=== PATIENT | male | born 1935 | race Caucasian/White ===

== ENCOUNTER 2016-12-09 07:54 | Inpatient (IN) | payer OTHER ==
--- NOTE | 2016-11-24 10:06 | PAT Medication Instructions ---
Service Date Nov 24, 2016. Current Home Medication List Acetaminophen (Tylenol), 1,000 MG PO Q6 PRN for Pain Aspirin (Aspirin Ec), 81 MG PO DAILY Diclofenac Sodium (Voltaren), 75 MG PO Q6H Doxazosin Mesylate (Cardura), 4 MG PO QPM Fish Oil (Hiland-3), 2 CAP PO BID Levothyroxine Sodium (Levothyroxine Sodium), 50 MCG PO DAILY Losartan Potassium (Cozaar), 50 MG PO DAILY Metoprolol Tartrate (Lopressor), 25 MG PO BID Multiple Vitamin (Multivitamin), 1 TAB PO DAILY Medication Instructions For Your Scheduled Surgery - Hold the following medications 10 days prior to surgery: Diclofenac Sodium (Voltaren), 75 MG PO Q6H (per surgeon's instructions) Fish Oil (Hiland-3), 2 CAP PO BID - Hold the following medications the morning of surgery: Losartan Potassium (Cozaar), 50 MG PO DAILY Multiple Vitamin (Multivitamin), 1 TAB PO DAILY - Take the following medications the morning of surgery with a sip of water: Levothyroxine Sodium (Levothyroxine Sodium), 50 MCG PO DAILY Metoprolol Tartrate (Lopressor), 25 MG PO BID Acetaminophen (Tylenol), 1,000 MG PO Q6 PRN for Pain (may take up to 4 hours prior to surgery if needed) - Take the following medications as scheduled the night before surgery: Aspirin (Aspirin Ec), 81 MG PO DAILY evening Doxazosin Mesylate (Cardura), 4 MG PO QPM Metoprolol Tartrate (Lopressor), 25 MG PO BID Acetaminophen (Tylenol), 1,000 MG PO Q6 PRN for Pain If you have any questions please call us at [phone] or [phone] or [phone]
--- NOTE | 2016-11-24 10:48 | DIAGNOSTIC IMAGING REPORT ---
CHEST 2 VIEWS ROUTINE CLINICAL HISTORY: Preoperative chest COMPARISON STUDY: 11/14/2015 FINDINGS: The heart is normal in size. There is no failure. There is elevation right hemidiaphragm. There are right basilar atelectatic changes. No pleural effusions are visualized. There is a chronic deformity the distal left clavicle.[ IMPRESSION: Persistent elevation right hemidiaphragm. Minor right basilar atelectasis. Electronically signed by: Edgard Bernal M.D. 11/24/2016 10:47 AM Dictated Date/Time: 11/24/2016 10:46 AM
[2016-11-24 10:52] LABS: BASO % 0.2 %; BASO ABS # 0.01 K/uL (0-0.2); COMPLETE YES; EOS % 2.3 %; HEMATOCRIT 36.8 % (42-52); IG% 0.2 %; LYMPH % 24.7 %; LYMPH ABS # 1.59 K/uL (1.2-3.4); MEAN CELL VOLUME 87.8 fL (80-100); MEAN CORPUSCULAR HEMOGLOBIN 31.7 pg (25-34); MEAN CORPUSCULAR HGB CONC 36.1 g/dl (32-36); MEAN PLATELET VOLUME 9.2 fL (7.4-10.4); MONO % 10.7 %; NEUT % 61.9 %; PLATELET COUNT 202 K/uL (130-400); RED BLOOD COUNT 4.19 M/uL (4.7-6.1); WHITE BLOOD COUNT 6.43 K/uL (4.8-10.8)
[2016-11-24 11:01] LABS: PARTIAL THROMBOPLASTIN RATIO 1.2; PROTHROMBIN TIME (PATIENT) 10.5 SECONDS (9.0-12.0)
[2016-11-24 11:29] LABS: BLOOD UREA NITROGEN 9 mg/dl (7-18); BUN/CREATININE RATIO 11.7 (10-20); C-REACTIVE PROTEIN 0.53 mg/dl (0-0.29); CALCIUM 9.3 mg/dl (8.5-10.1); CARBON DIOXIDE 26 mmol/L (21-32); CHLORIDE 102 mmol/L (98-107); CREATININE 0.73 mg/dl (0.60-1.40); GLUCOSE 86 mg/dl (70-99); POTASSIUM 4.2 mmol/L (3.5-5.1); SODIUM 138 mmol/L (136-145)
[2016-11-24 12:19] VITALS: BMI 28.0
--- NOTE | 2016-12-03 10:13 | HISTORY & PHYSICAL EXAMINATION ---
DATE OF ADMISSION: 12/09/2016 CHIEF COMPLAINT: Right knee pain. HISTORY OF PRESENT ILLNESS: This 81-year-old gentleman who is well known to me from a previous left knee replacement done in 2004. He has done well from that side. Over the past several years, he has developed increased pain and discomfort in his right knee. He has had steroid shots. This has created quite a bit of side effects and he cannot tolerate the shots. He gets flushing in his face and his says he has a mean demeanor after the shots for about 2 days. Pain has become more debilitating. The more he walks, the more it hurts. He limps further as the day goes on. He would like to have his right knee replaced. PAST MEDICAL HISTORY: Significant for: 1. Pericarditis, followed by Dr. Aguiar. 2. Hypothyroidism. 3. Low back pain/sciatica. 4. Premelanoma. PAST SURGICAL HISTORY: Include: 1. Left shoulder surgery in 2002. 2. Right shoulder surgery in 2012. 3. Mohs surgery. 4. Left knee replacement done in 2004. ALLERGIES: AMOXICILLIN AND SULFA. CURRENT MEDICINES: Include: 1. Metoprolol. 2. Multivitamin. 3. Unspecified Med. 4. Levothyroxine. 5. Doxazosin. 6. Low-dose aspirin. 7. Diclofenac. 8. Tramadol. 9. Lisinopril. SOCIAL HISTORY: A 81-year-old male patient from [place]. He is . Two children. He does not smoke. FAMILY HISTORY: Significant for heart disease, diabetes and leukemia. REVIEW OF SYSTEMS: Significant for this history of pericarditis without any residual symptoms. Denies any chest pain or shortness of breath. No history of DVT or PE. PHYSICAL EXAMINATION: GENERAL: Reveals a healthy, pleasant elderly male. He looks to be in good health. HEENT: Benign. NECK: Supple. No lymphadenopathy. LUNGS: Clear to auscultation. HEART: Regular rate and rhythm. ABDOMEN: Soft, nontender, nondistended. EXTREMITIES: Grossly neurovascularly intact except as follows: Examination of the right knee and leg reveals the patient walks with just slight bit of a limp. He has got varus alignment to his knee. He does have varus thrust with weightbearing. He has got bony hypertrophy medially. Moderate to large knee joint effusion. Range of motion 5-120. No instability. No pain with hip motion. X-RAYS: X-rays of the right knee were reviewed. They show advanced right knee DJD. He has got complete loss of his medial joint space. He has got subchondral sclerosis. He has got osteophytes of the medial femoral condyle and medial tibial plateau. ASSESSMENT: A 81-year-old gentleman, 11 years out from left knee replacement, with advanced right knee degenerative joint disease. He does not do well with injections. He would like to have his right knee replaced. PLAN: We will take him to the operating room and do right total knee replacement. The risks and benefits of this procedure were explained to the patient including but not limited to DVT, PE, , infection, neurological injury, vascular injury, bleeding problem, pain, limited range of motion, stiffness, failure to relieve symptoms, incomplete relief of symptoms, need for further surgery in the future, fracture, leg length inequality, nerve palsy, etc. The patient understands and desires to proceed. Informed consent was obtained. As far as discharge plans, he is planning to be discharged to home. We did talk to him about holding his lisinopril the morning of surgery and making sure he takes his metoprolol. The patient had preoperative workup. Chest x-ray showed a persistent elevation of his right hemidiaphragm. EKG was normal. Labs were all pretty normal. Just slightly elevated CRP. No focal signs of infection. MTDD
[~2016-12-09] VITALS: Ht 165.1 cm; Wt 76.4 kg
[2016-12-09] VITALS (11 sets, daily range): BP systolic 125–183; BP diastolic 65–85; PULSE 61–72; TEMP 36.1–36.7; O2SAT 95–98; Ht 165.1 cm; Wt 76.4 kg
[~2016-12-09 07:54] MED LIST: ACET-1256 PO; ACETAMINOPHEN 500 MG TAB PO SCH; ASPI81TA28 PO; BUPIVACAINE 0.5 % 5 MG/1 ML PF 10ML VIAL ONE; BUPIVACAINE LIPOSOME 266 MG, BUPIVACAINE/EPINEPHRINE INJ 50 ML, SODIUM CHLORIDE 0.9% PF... INFIL SCH; BUPIVACAINE/EPINEPHRINE 0.25% 1:200,000 30 ML VIAL ONE; CEFAZOLIN 2000 MG/60 ML D5W 60 ML IV SCH; DEXAMETHASONE SOD INJ 4 MG/ML VIAL ONE; DICL75TA2 PO; DOXA4TAB2 PO; FAMOTIDINE 20 MG TAB PO SCH; GABAPENTIN 300 MG CAP PO SCH; LACTATED RINGER'S 1000ML 1,000 ML IV SCH; LACTATED RINGER'S 1000ML 500 ML IV ONE; LACTATED RINGER'S 1000ML IV SCH; LEVO50TA6 PO; LOSA50TA6 PO; LPR25 PO; METOCLOPRAMIDE HCL 10 MG TAB PO SCH; MULTTAB58 PO; OMEG10007 PO; SCOPOLAMINE 1.5 MG TDSY TD SCH; TRANEXAMIC ACID INJ 1,000 MG in SODIUM CHLORIDE 0.9% 100ML 100 ML IV SCH
[2016-12-09] MEDS ORDERED: BUPIVACAINE LIPOSOME 1/3% 266 MG/20 ML VIAL INFIL ONE (08:57)
[2016-12-09] MEDS ORDERED: SODIUM CHLORIDE 0.9% PF 50 ML VIAL ONE (08:57)
[2016-12-09] MEDS ORDERED: BACITRACIN 50000 UNIT VIAL ONE (08:57)
[2016-12-09] MEDS ORDERED: BUPIVACAINE/EPINEPHRINE 0.25% 1:200,000 30 ML VIAL ONE (08:57)
[2016-12-09] MEDS ORDERED: ATROPINE SULFATE 0.1 MG/ML 5ML SYR IV PRN (09:30)
[2016-12-09] MEDS ORDERED: FENTANYL CITRATE INJ 50 MCG/1 ML 2 ML VIAL IV PRN (09:30)
[2016-12-09] MEDS ORDERED: ONDANSETRON INJ 2 MG/ML 2 ML VIAL IV PRN ×2 (09:30→12:00)
[2016-12-09] MEDS ORDERED: EpHEDrine SULFATE INJ 50 MG/ML AMP IV PRN (09:30)
[2016-12-09] MEDS ORDERED: MIDAZOLAM HCL 1 MG/ML 2ML VIAL ONE (09:36)
[2016-12-09] MEDS ORDERED: FENTANYL CITRATE INJ 50 MCG/1 ML 2 ML VIAL ONE (09:36)
--- NOTE | 2016-12-09 10:12 | History & Physical Bridge Note ---
H&P Re-Evaluation Bridge Note: I have examined the patient, reviewed the History & Physical and in the interval since the performance of the History & Physical I have noted the following changes of clinical significance: No changes noted
[2016-12-09] MEDS ORDERED: LIDOCAINE HCL 2% 2 ML VIAL (20MG/ML) ONE (10:28)
[2016-12-09] MEDS ORDERED: PROPOFOL IV EMULSION 10 MG/ML 20 ML VIAL IV ONE (10:28)
--- NOTE | 2016-12-09 11:52 | [facility] Post Operative Brief Note ---
Immediate Operative Summary Operative Date Dec 09, 2016. Pre-Operative Diagnosis Right Knee Advanced Degenerative Joint Disease Post-Operative Diagnosis Right Knee Advanced Degenerative Joint Disease Procedure(s) Performed Right Total Knee Arthroplasty Surgeon Dr. Acosta Digital Photographer Surgeon(s) DEANN Ayers Estimated Blood Loss 50 ml Findings Right Knee DJD Fluids (cc crystalloids) 1300 cc Specimens A. Right Knee Bone and Tissue Drains None Anesthesia Spinal Complication(s) None Disposition Recovery Room / PACU
[2016-12-09] MEDS ORDERED: METOCLOPRAMIDE HCL INJ 5 MG/ML 2 ML VIAL IV PRN (12:00)
[2016-12-09] MEDS ORDERED: TRAMADOL HCL 50 MG TAB PO PRN (12:00)
[2016-12-09] MEDS ORDERED: TAMSULOSIN HCL 0.4 MG CAP PO PRN (12:00)
[2016-12-09] MEDS ORDERED: ALUMINUM/MAGNESIUM/SIMETH (MAALOX MAX) 30 ML UDC PO PRN (12:00)
[2016-12-09] MEDS ORDERED: DiphenhydrAMINE HCL 50 MG/ML VIAL IV PRN (12:00)
[2016-12-09] MEDS ORDERED: BISACODYL 10 MG SUPP PR PRN (12:00)
[2016-12-09] MEDS ORDERED: MAGNESIUM HYDROXIDE SUSP 30 ML UDC PO PRN (12:00)
[2016-12-09] MEDS ORDERED: ZOLPIDEM TARTRATE 5 MG TAB PO PRN (12:00)
--- NOTE | 2016-12-09 12:30 | DIAGNOSTIC IMAGING REPORT ---
TWO VIEWS RIGHT KNEE CLINICAL HISTORY: Postoperative examination. FINDINGS: AP and crosstable lateral portable views of the right knee are obtained. A right knee arthroplasty is in near anatomic alignment. There has been undersurface remodeling of the patella. No acute fracture is seen. There are expected postoperative changes around the knee including skin clips, soft tissue edema, and subcutaneous gas. IMPRESSION: Expected postoperative changes status post right knee arthroplasty. No acute fracture is seen. Electronically signed by: Matthew Marina M.D. 12/09/2016 12:29 PM Dictated Date/Time: 12/09/2016 12:29 PM
--- NOTE | 2016-12-09 12:33 | Anesthesiology Progress Note ---
Anesthesia Post Op Note Date & Time Dec 09, 2016 at 12:33 Vital Signs Pain Intensity: 0 Vital Signs Past 12 Hours Date Time Temp Pulse Resp B/P Pulse Ox O2 Delivery O2 Flow Rate FiO2 12/09/16 12:25 62 16 131/67 98 Nasal Cannula 2 12/09/16 12:15 65 16 123/68 97 Nasal Cannula 2 12/09/16 12:05 63 16 125/61 98 Mask 10 12/09/16 11:58 37.0 63 16 117/66 100 Mask 10 12/09/16 08:46 36.1 69 18 163/85 98 Room Air Notes Mental Status: alert / awake / arousable, participated in evaluation Pt Amnestic to Procedure: Yes Nausea / Vomiting: adequately controlled Pain: adequately controlled Airway Patency, RR, SpO2: stable & adequate BP & HR: stable & adequate Hydration State: stable & adequate Neuraxial Anesthesia: was administered, sensory block is resolving Anesthetic Complications: no major complications apparent
[2016-12-09] MEDS: KETOROLAC TROMETHAMINE 15 MG/ML VIAL IV. SCH ×2 (14:15→20:15)
[2016-12-09] MEDS: FERROUS GLUCONATE 324 MG TAB PO SCH ×2 (14:15→17:45)
[2016-12-09] MEDS: ACETAMINOPHEN 500 MG TAB PO SCH ×2 (14:16→21:52)
[2016-12-09] MEDS: D5W AND 1/2NSS + 20MEQ KCL 1,000 ML IV SCH ×2 (14:16→23:13)
--- NOTE | 2016-12-09 14:32 | PROGRESS NOTE ---
DATE: 12/09/2016 DATE: 12/09/2016. SUBJECTIVE: A 81-year-old gentleman postop from a right knee replacement. He is doing well. No pain. No chest pain or shortness of breath. Not feeling dizzy or lightheaded. OBJECTIVE: VITAL SIGNS: Temperature 36.5. Vital signs stable. PHYSICAL EXAMINATION: GENERAL: Reveals a healthy, pleasant elderly male. He is sitting up in bed eating his lunch. He looks comfortable. LUNGS: Clear to auscultation. HEART: Regular rate and rhythm. ABDOMEN: Soft, nontender, nondistended. EXTREMITY EXAMINATION: Grossly neurovascularly intact except as follows: Examination of the right lower extremity reveals the leg to be well aligned. He can dorsiflex and plantarflex his foot appropriately. He is neurologically intact. X-RAYS: X-rays of the right knee from recovery room were reviewed. It shows a cemented posterior total knee arthroplasty. Components looked to be in good position. No signs of problems. ASSESSMENT: A 81-year-old gentleman postop from a right knee replacement, doing well. His pain is controlled. He is neurologically intact. PLAN: 1. DVT prophylaxis including thigh-high TEDs, SCDs, and twisting. 2. PT/OT. Weightbearing as tolerated. Right total knee protocol. 3. Pain control. Doing well with current pain regimen. 4. IV antibiotics x24 hours. 5. Disposition. Plan to be discharged to home with some home health once adequately recovered.
[2016-12-09] MEDS: LOSARTAN POTASSIUM 50 MG TAB PO SCH (15:10)
[2016-12-09] MEDS: METOPROLOL TARTRATE 25 MG TAB PO SCH ×2 (15:10→20:16)
--- NOTE | 2016-12-09 15:55 | OPERATIVE REPORT ---
DATE OF OPERATION: 12/09/2016 SURGEON: Dr. Surinder Acosta. PULLMAN CONDUCTOR: DEANN Carroll. PREOPERATIVE DIAGNOSIS: Right knee degenerative joint disease. POSTOPERATIVE DIAGNOSIS: Right total knee arthroplasty. COMPLICATIONS: None. ESTIMATED BLOOD LOSS: 50 mL. FLUID REPLACEMENT: 1300 mL crystalloid fluid replacement. TOURNIQUET TIME: 58 minutes at 300 mmHg. ANESTHESIA: Spinal with adductor canal block. DRAINS: None. SPECIMENS: Right knee sent for pathology. OPERATIVE INDICATIONS: The patient is a 81-year-old very active gentleman who has had a long history of knee problems. He underwent a left knee replacement 12 years ago and has done extremely well from this. Over the past several years, he has developed increased pain and discomfort in his right knee. He failed conservative treatment and elected to proceed with the right total knee arthroplasty. OPERATIVE FINDINGS: Operative findings revealed advanced right knee DJD. 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 He did have some focal grade 4 changes in the lateral femoral condyle as well as fairly extensive grade 4 changes of the patellofemoral joint. OPERATIVE IMPLANTS: Operative implants consisted of: 1. Biomet Vanguard size 67.5 right posterior stabilized femoral component. 2. Biomet size 71 tibial tray. 3. A 10 mm posterior stabilized polyethylene insert. 4. A 34 x 8.5 All-Poly patella. OPERATIVE PROCEDURE: The patient taken to the operating room, identified and placed on the operating table in supine position. All contact areas were appropriately padded. IV antibiotics were provided by the anesthesia team. A spinal anesthetic and adductor canal block had been provided in the holding area. Jackson catheter was placed in sterile fashion. A right thigh tourniquet was then placed and the right lower extremity was then prepped and draped in the usual sterile fashion. The right leg was elevated and exsanguinated with Esmarch and tourniquet was placed at 300 mmHg. An anterior approach to the right knee was then performed through a longitudinal incision centered over the patella. Sharp dissection was carried out through the subcutaneous tissues down to the level of the extensor mechanism. A medial parapatellar arthrotomy incision was made. Some subperiosteal dissection was carried out medially. The fat pad was resected from beneath the patellar tendon. The lateral patellofemoral ligament was released. The patella was everted and knee was flexed. The osteophytes were taken off the distal femur. The ACL and PCL were then released from the distal femur and the tibia subluxated anteriorly. The external tibial alignment jig was then placed in the anterior face of the tibia and adjusted 16 mm medially. Proximal tibial cut was made to remove about a millimeter or 2 of bone from the most deficient aspect of the medial tibial plateau. Tibia was sized to a size 71. Some osteophytes were taken off medial and posteromedially. Attention was then drawn to the femur. The distal femur was entered with a sharp drill bit. Intramedullary canal was suctioned. A right 6 degree valgus cutting guide was placed. Distal femoral cutting block was pinned in place. Distal femoral cut was made to take an additional 3 mm of bone off the distal femur. The femur was then sized to a size 67.5. We downsized this just slightly. The AP cutting block was pinned parallel to the epicondylar axis, which was 3 degrees of external rotation. The anterior cut, anterior chamfer, posterior cut, posterior chamfer cuts were made. Box cutting guide was placed and adjusted slightly lateral and the box cut was made. The knee was flexed. The remnants of the medial and lateral menisci were excised. The osteophytes were taken off the posterior aspect of the femur. Trial femoral component was placed. The tibial tray was pinned in maximum external rotation and drill and stem punch were used to create defect in proximal tibia for the tibial tray. The knee was then trialed and the 10 mm insert fit most appropriately. Attention was then drawn to the patella. The patella was cleaned of all soft tissues. Patellar thickness measured 23 mm and was cut down to 14. Lug holes was sized to a size 34 patella. Lug holes were drilled for a 34 patella. Lateral osteophyte was removed. Patella button was placed. Knee was taken through range of motion and the patella tracked nicely with no thumbs test. Attention was then drawn toward placement of permanent components. All trial components were removed. Bone plug was placed in the distal femur to limit blood loss. A double batch of Palacos G cement was mixed. A right size 67.5 posterior stabilized femoral component, size 71 tibial tray, 10 mm posterior stabilized polyethylene insert, and a 34 x 8.5 All-Poly patella was then cemented in place. Knee was brought out into full extension until cement hardened. A final cement check was then performed. Pericapsular tissues were injected with 100 mL of a combination of 20 mL of Exparel, 30 mL of normal saline, 50 mL of 0.25% Marcaine with epinephrine. The patient did receive 1 gram of tranexamic acid. The tourniquet was then let down for a final tourniquet time of 58 minutes. Hemostasis was assured with use of electrocautery. The extensor mechanism was then closed with a combination of #1 PDS suture and #1 Vicryl suture in a [id number] fashion. Extensor mechanism was checked and found to be intact. The subcutaneous tissues were then closed with 2-0 Dexon suture in a buried interrupted fashion. Skin was closed with skin melanie. The leg was then cleaned and dried and a sterile dressing with Xeroform, 4 x 4, sterile cast padding and Molina bandage were applied. The patient then transferred to the recovery room in stable condition. The patient tolerated the procedure well and there were no complications. All needle and sponge counts were correct at the end of the operation. I attest to the content of the Intraoperative Record and any orders documented therein. Any exceptions are noted below. MEDARDOD
[2016-12-09] MEDS: CHECK SCOPOLAMINE PATCH PLACEMENT SCH ×2 (16:18→23:14)
[2016-12-09] MEDS: CEFAZOLIN IV 1,000 MG in DEXTROSE 5% 50ML 50 ML IV SCH (17:47)
[2016-12-09] MEDS ORDERED: TRANEXAMIC ACID INJ 1,000 MG in SODIUM CHLORIDE 0.9% 100ML 100 ML IV SCH (18:00)
[2016-12-09] MEDS: DOCUSATE SODIUM 100 MG CAP PO SCH (20:16)
[2016-12-09] MEDS: ASPIRIN 325 MG ECTAB PO SCH (20:16)
[2016-12-09] MEDS: DOXAZosin MESYLATE TAB 4 MG TAB PO SCH (20:16)
[2016-12-10] VITALS (7 sets, daily range): BP systolic 122–160; BP diastolic 64–74; PULSE 58–74; TEMP 36.4–36.8; O2SAT 96–98
[2016-12-10] MEDS: CEFAZOLIN IV 1,000 MG in DEXTROSE 5% 50ML 50 ML IV SCH (01:57)
[2016-12-10] MEDS: KETOROLAC TROMETHAMINE 15 MG/ML VIAL IV. SCH ×4 (01:58→20:40)
[2016-12-10] MEDS: LEVOTHYROXINE 50 MCG TAB PO SCH (05:40)
[2016-12-10] MEDS: ACETAMINOPHEN 500 MG TAB PO SCH ×3 (05:40→20:41)
[2016-12-10 06:14] LABS: HEMATOCRIT 29.3 % (42-52); MEAN CELL VOLUME 86.4 fL (80-100); MEAN CORPUSCULAR HEMOGLOBIN 31.6 pg (25-34); MEAN CORPUSCULAR HGB CONC 36.5 g/dl (32-36); MEAN PLATELET VOLUME 8.9 fL (7.4-10.4); PLATELET COUNT 192 K/uL (130-400); RED BLOOD COUNT 3.39 M/uL (4.7-6.1)
[2016-12-10 06:45] LABS: BUN/CREATININE RATIO 14.5 (10-20); CALCIUM 7.9 mg/dl (8.5-10.1); CREATININE 0.96 mg/dl (0.60-1.40); POTASSIUM 4.1 mmol/L (3.5-5.1)
[2016-12-10] MEDS: CHECK SCOPOLAMINE PATCH PLACEMENT SCH ×3 (08:00→23:15)
--- NOTE | 2016-12-10 08:30 | Anesthesiology Progress Note ---
Anesthesia Post Op Note Date & Time Dec 10, 2016 at 08:29 Vital Signs Pain Intensity: 0.0 Vital Signs Past 12 Hours Date Time Temp Pulse Resp B/P Pulse Ox O2 Delivery O2 Flow Rate FiO2 12/10/16 08:23 98 Room Air 12/10/16 07:56 36.5 72 16 146/70 98 Room Air 12/10/16 03:14 36.6 71 16 122/67 96 Room Air 12/09/16 23:30 36.6 65 16 125/68 95 Room Air Notes Mental Status: alert / awake / arousable, participated in evaluation Pt Amnestic to Procedure: Yes Nausea / Vomiting: adequately controlled Pain: adequately controlled Airway Patency, RR, SpO2: stable & adequate BP & HR: stable & adequate Hydration State: stable & adequate Neuraxial Anesthesia: sensory block resolved Anesthetic Complications: no major complications apparent
[2016-12-10] MEDS ORDERED: MULTIVITAMIN TAB PO SCH (09:00)
[2016-12-10] MEDS: FERROUS GLUCONATE 324 MG TAB PO SCH ×3 (09:11→18:00)
[2016-12-10] MEDS: ASPIRIN 325 MG ECTAB PO SCH ×2 (09:11→20:42)
[2016-12-10] MEDS: METOPROLOL TARTRATE 25 MG TAB PO SCH ×2 (09:11→20:42)
[2016-12-10] MEDS: PANTOprazole SOD 40 MG TAB PO SCH (09:11)
[2016-12-10] MEDS: MULTIVITAMIN TAB PO SCH (09:11)
[2016-12-10] MEDS: DOCUSATE SODIUM 100 MG CAP PO SCH ×2 (09:12→20:42)
[2016-12-10] MEDS: LOSARTAN POTASSIUM 50 MG TAB PO SCH (09:12)
[2016-12-10] MEDS: D5W AND 1/2NSS + 20MEQ KCL 1,000 ML IV SCH (09:31)
[2016-12-10] MEDS ORDERED: FRRG PO (12:16)
[2016-12-10] MEDS ORDERED: ASPEC325 PO (12:16)
[2016-12-10] MEDS ORDERED: ACET-1138 PO (12:16)
[2016-12-10] MEDS ORDERED: ULT50X PO (12:16)
--- NOTE | 2016-12-10 12:18 | Discharge Instructions ---
Discharge Instructions Date of Service Dec 10, 2016. Admission Reason for Admission: Right Knee Pain, Osteoarthritis, Hx Of [place] Discharge Discharge Diagnosis / Problem: Right Knee Replacement Discharge Goals Goal(s): Decrease discomfort, Improve function, Increase independence, Improve disease control, Therapeutic intervention Activity Recommendations Activity Limitations: per Instructions/Follow-up section Weightbearing Status: Right weightbearing . Instructions / Follow-Up Instructions / Follow-Up ACTIVITY RECOMMENDATIONS: Physical Therapy: * You will go to physical therapy three times each week for four to six weeks after your surgery in order to regain your knee range of motion and to retrain your knee to work properly. * It is just as important to make sure you are getting your knee perfectly straight as it is to regain your knee bend. * Taking a pain pill an hour before therapy can help you have a more productive and comfortable therapy session. Home Exercise: * You were shown a series of exercises (heel props, heel slides, etc.) in the hospital. Do these exercises three to four times each day including the exercises you were shown in physical therapy. Walking: * Get up and walk several times each day. For the first four weeks, try not to stand or walk for more than one hour at a time. If you do stand or walk for more than one hour, you will not hurt anything, but your knee and leg will likely swell. * As you feel comfortable, you may change from the walker or crutches to a cane and then to independent walking. MEDICATIONS: New Medicine: * You will likely be taking one or more of these medications: 1. Tramadol - A quick and shorter-acting pain medication. Take one to two tablets every four to six hours to lessen your pain. 2. Iron Sulfate - Take two times each day for the month after surgery to help you replace the blood lost during surgery. 3. Aspirin - Thins your blood to lessen the chance of forming a blood clot. * The most common side effects of pain medicine and iron are nausea and constipation. If nausea or constipation is too much of a problem or if you have any questions about your new medicines or doses, call [facility] at . We will try to help you manage these issues. VERY IMPORTANT TO READ AND REVIEW" Pain: * The immediate post-operative period after knee replacement surgery is often quite painful. * You are given a prescription for pain medicine. You should take it, as directed, when you need it, especially before physical therapy and before going to bed. Pain that interferes with sleep is very common and can last several months. * You will likely need pain medicine for the first four to six weeks. It will not stop all of the pain. The pain will lessen and as you feel better, you may change to milder pain medicine such as Tylenol. * The most common side effects of pain medicine are nausea and constipation, so don't take more than you need. SPECIAL CARE INSTRUCTIONS: TEDs/Elastic Stockings: * The white elastic stockings help limit swelling and prevent blood clots from forming in your legs. The more you wear them, the more they work. * Wear them for six weeks after knee replacement surgery and four weeks after partial knee replacement. Prevention of Infection: * Take antibiotics one hour before any dental cleaning, dental work, urological procedure, gastrointestinal procedure or any invasive surgery in order to prevent your new joint from getting infected. * You may get the antibiotics from the doctor performing the procedure or you may call our office at before and we will call in a prescription to the pharmacy of your choice. Things to Watch For: * Drainage from the incision site that occurs more than one week after your surgery. * Severely increased knee/leg pain or swelling. * Increased redness at the incision site. * Fever above 102 degrees Fahrenheit. * Unusual chest pain or shortness of breath. * Unusual pain or burning with urination. Call [facility] at with any of the above problems or if you have any questions about your medicines or recovery. FOLLOW UP VISIT: Make an appointment to see your doctor for approximately two weeks after surgery for a progress check and staple removal by calling the office at . Current Hospital Diet Patient's current hospital diet: Regular Diet Discharge Diet Recommended Diet: Regular Diet Procedures Procedures Performed: Right Total Knee Arthroplasty Pending Studies Studies pending at discharge: no Medical Emergencies . Who to Call and When: Medical Emergencies: If at any time you feel your situation is an emergency, please call [phone] immediately. . Non-Emergent Contact Non-Emergency issues call your: Surgeon . . "Provider Documentation" section prepared by Surinder Acosta. VTE Core Measure Inpt VTE Proph given/why not?: Other Anticoagulation, T.E.D. Stockings, SCD's
--- NOTE | 2016-12-10 12:23 | PROGRESS NOTE ---
DATE: 12/10/2016 SUBJECTIVE: 81-year-old gentleman postop day 1 from right knee replacement. He is doing well. Currently minimal pain. Denies any chest pain or shortness of breath. Says his pain is much different than with his knee 12 years ago. OBJECTIVE: VITAL SIGNS: Temperature 36.4. Vital signs stable. PHYSICAL EXAMINATION: GENERAL: Reveals is a healthy, pleasant, elderly male. He is sitting up in his bedside chair and reading. LUNGS: Clear to auscultation. HEART: Regular rate and rhythm. ABDOMEN: Soft, nontender, nondistended. EXTREMITIES: Grossly neurovascularly intact except as follows. Examination of the right leg reveals the dressing to be clean, dry and intact. No significant drainage. He can dorsiflex and plantarflex his foot appropriately. He is neurologically intact. LABORATORY DATA: Hemoglobin is 10.7. Hematocrit 29.3. Electrolytes are stable. ASSESSMENT: 81-year-old gentleman postop day 1 from right knee replacement, doing pretty well. Pain is well controlled. He is neurologically intact. PLAN: 1. DVT prophylaxis including thigh-high TEDs, SCDs, and aspirin twice a day. 2. PT/OT. Weightbearing as tolerated. Right total knee protocol. 3. Pain control. Doing well with current pain regimen. Really not having much pain at all. 4. Anemia. He is asymptomatic. We will continue iron supplementation. 5. Disposition: Plan to discharge to home with some home health once adequately recovered.
[2016-12-10] MEDS: DOXAZosin MESYLATE TAB 4 MG TAB PO SCH (20:41)
[2016-12-11] MEDS: KETOROLAC TROMETHAMINE 15 MG/ML VIAL IV. SCH ×2 (01:34→08:05)
[2016-12-11] MEDS: LEVOTHYROXINE 50 MCG TAB PO SCH (05:44)
[2016-12-11] MEDS: ACETAMINOPHEN 500 MG TAB PO SCH (05:44)
[2016-12-11 06:15] VITALS: BP 151/78; PULSE 67; TEMP 36.6; O2SAT 98
--- NOTE | 2016-12-11 07:38 | PROGRESS NOTE ---
DATE: 12/11/2016 SUBJECTIVE: A 81-year-old gentleman postop day 2 from a right knee replacement. He is doing well. Taking mostly just Tylenol for pain. No chest pain or shortness of breath. Not feeling dizzy or lightheaded. OBJECTIVE: VITAL SIGNS: Temperature 36.6. Vital signs stable. GENERAL: Reveals a pleasant, elderly male. He is sitting at his bedside, eating breakfast and looks comfortable. LUNGS: Clear to auscultation. HEART: Regular rate and rhythm. ABDOMEN: Soft, nontender, nondistended. EXTREMITIES: Grossly neurovascularly intact except as follows: Examination of the right leg reveals the dressing to be clean, dry, and intact. He can dorsiflex and plantarflex his foot appropriately. He is neurologically intact. ASSESSMENT: A 81-year-old gentleman postop day 2 from right knee replacement, doing well. His pain is controlled. He is neurologically intact. PLAN: 1. DVT prophylaxis including thigh-high TEDs, SCDs, and aspirin twice a day. 2. PT/OT. Weightbearing as tolerated. Right total knee protocol. 3. Pain control, doing well with current pain regimen. 4. Disposition. Plan to discharge to home with some home health after therapy.
[2016-12-11] MEDS: ASPIRIN 325 MG ECTAB PO SCH (08:07)
[2016-12-11] MEDS: DOCUSATE SODIUM 100 MG CAP PO SCH (08:07)
[2016-12-11] MEDS: FERROUS GLUCONATE 324 MG TAB PO SCH (08:07)
[2016-12-11] MEDS: MULTIVITAMIN TAB PO SCH (08:08)
[2016-12-11] MEDS: LOSARTAN POTASSIUM 50 MG TAB PO SCH (08:08)
[2016-12-11] MEDS: PANTOprazole SOD 40 MG TAB PO SCH (08:08)
[2016-12-11] MEDS: METOPROLOL TARTRATE 25 MG TAB PO SCH (08:08)
[2016-12-11 08:15] VITALS: BP 151/78; PULSE 67; TEMP 36.6; O2SAT 98
--- NOTE | 2016-12-17 15:37 | DISCHARGE SUMMARY ---
ADMITTING PHYSICIAN AND SURGEON: Dr. Acosta. ADMITTING DIAGNOSIS: Right knee degenerative joint disease. SURGERY PERFORMED: Right total knee arthroplasty. SECONDARY DIAGNOSES: Pericarditis, hypothyroidism, low back pain, sciatica premelanoma. CONSULTS: None obtained. HISTORY AND PHYSICAL EXAMINATION: Well documented in the patient's chart. HOSPITAL COURSE: The patient was admitted on 12/09/2016 underwent total knee arthroplasty, tolerated the procedure well. There were no complications. He was transferred to PACU postoperatively and later to the orthopedic floor for further care. He was given Ancef for antibiotic prophylaxis, JUAN A stockings, SCDs and aspirin for DVT prophylaxis. Hemoglobin, hematocrit and vital signs were monitored during his hospital stay and remained stable. He developed some postoperative anemia with a hemoglobin of 10.7 did not require any blood transfusions. There were no complications. By postoperative day 2, he was tolerating a general diet. Pain was controlled with oral pain medicine. He was participating in physical therapy and had no signs or symptoms of deep vein thrombosis. On postop day 2, he was discharged home and set up with home health services. He was given printed discharge instructions including Extra-Strength Tylenol, aspirin 325 mg b.i.d., iron supplement and tramadol. Continue his home medicines with the exception of his home dose of Tylenol and aspirin which were changed. Continue physical therapy, weightbearing as tolerated. JUAN A stockings. He will follow up with Dr. Acosta in 10-12 days or sooner if there are problems or concerns.
== END 2016-12-11 10:40 | disposition home health service (06) | DRG 470 ==
LOC: ENRESERVDT → ENRESERVTM → C.ACU 07:54 → C.3E 08:40
PROVIDERS: ADMIT Orthopaedic Surgery Sports Medicine; ATTEND Orthopaedic Surgery Sports Medicine
PROC: 0SRC0J9 Replacement of Right Knee Joint with Synthetic Substitute, Cemented, Open Approach (ICD-10-PCS; principal; 2016-12-09 10:50)
DX: M17.11 Unilateral primary osteoarthritis, right knee (principal); D64.9 Anemia, unspecified; Z96.652 Presence of left artificial knee joint; E03.9 Hypothyroidism, unspecified; Z79.899 Other long term (current) drug therapy; Z79.82 Long term (current) use of aspirin; Z83.3 Family history of diabetes mellitus; Z82.49 Family history of ischemic heart disease and other diseases of the circulatory system; Z80.6 Family history of leukemia